=== PATIENT | male | born 1960 | race Caucasian/White ===

== ENCOUNTER 2021-11-11 08:26 | Day surgery (SDC) | payer OTHER ==
[~2021-11-11] VITALS: Ht 170.2 cm; Wt 82.7 kg
[~2021-11-11 08:26] MED LIST: ANTIBIOTIC PO; DOCU100 PO; LISI10 PO
[2021-11-11] MEDS ORDERED: HYDCHL25 PO (09:04)
[2021-11-11] MEDS ORDERED: VALA500 PO (09:04)
[2021-11-11] MEDS ORDERED: ATOR40TA (09:05)
== END 2021-11-11 11:00 | disposition home or self-care (01) ==
LOC: ORSCSDS 08:26 → ORSCMMR 09:30 → ORD 09:30 → ORSCSDS 11:00
PROVIDERS: Internal Medicine Gastroenterology
PROC: 0DBK8ZX Excision of Ascending Colon, Via Natural or Artificial Opening Endoscopic, Diagnostic (ICD-10-PCS; principal; 2021-11-11 09:30)
DX: Z12.11 Encounter for screening for malignant neoplasm of colon (principal); Z86.010 Personal history of colon polyps; D12.2 Benign neoplasm of ascending colon; K57.30 Diverticulosis of large intestine without perforation or abscess without bleeding; I10 Essential (primary) hypertension; E78.00 Pure hypercholesterolemia, unspecified; Z79.899 Other long term (current) drug therapy; Z87.891 Personal history of nicotine dependence
CPT/HCPCS: 88305; J2704; J7120

== ENCOUNTER → 2021-12-29 | Outpatient (CLI) | payer OTHER ==
[~2021-12-29] MED LIST changes: +ATOR40TA; +HYDCHL25 PO; +VALA500 PO
[2021-12-29 13:30] LABS: Bacteria Not Seen /hpf; Red Blood Cells, Urine 0-2 /hpf (0-2); Source, Urine Clean Catch; Squamous Epithelial Cells Rare /hpf (Few); White Blood Cells, Urine Not Seen /hpf (0-5)
== END | disposition home or self-care (01) ==
LOC: LAB SHORT 13:19 → LAB 13:19
PROVIDERS: Physician Assistant
DX: R31.9 Hematuria, unspecified (principal)
CPT/HCPCS: 81015